=== PATIENT | male | born 1955 | race Caucasian/White ===

== ENCOUNTER → 2020-04-22 11:44 | Outpatient (BNVA) | payer MEDICARE, SELFPAY | PROVIDERS: Visit Provider Nurse Practitioner Family | DX: Z20.828 Contact with and (suspected) exposure to other viral communicable diseases (principal) | CPT/HCPCS: 87635 ==

== ENCOUNTER → 2023-02-22 14:48 | Outpatient (BNVA) | payer MEDICARE, SELFPAY | PROVIDERS: Visit Provider Nurse Practitioner | DX: E55.9 Vitamin D deficiency, unspecified (principal); Z12.5 Encounter for screening for malignant neoplasm of prostate; Z13.6 Encounter for screening for cardiovascular disorders; R41.3 Other amnesia | CPT/HCPCS: 80053; 80061; 81000; 82306; 82607; 84443; 85025; G0103 ==

== ENCOUNTER 2023-03-15 08:37 | Outpatient (CLI) | payer MEDICARE, SELFPAY ==
--- NOTE | 2023-03-15 09:00 | CT_ITS ---
WS: [id number] CT HEAD TECHNIQUE: Noncontrast CT of the head obtained from the skullbase to the vertex. CLINICAL INFORMATION: R41.3 - Other amnesia COMPARISON: None. DLP: 1028.[address] scans at [facility] use at least one of these dose optimization techniques: automated e xposure control; mA and/or kV adjustment per patient size (includes targeted exams where dose is matc hed to clinical indication); or iterative reconstruction. FINDINGS: No evidence of intracranial hemorrhage or mass effect. Ventricular system and basal cisterns are brownlee nt. Mild small vessel changes with mild parenchymal volume loss. No extra-axial fluid collections. No evidence of mass or mass effect. Intracranial vascular calcification. Paranasal sinuses and mastoid air cells are well aerated. .Normal visualized soft tissues. IMPRESSION: 1. No evidence of intracranial hemorrhage or mass effect. 2. Mild small vessel changes. Mild parenchymal volume loss. 3. Cavernous carotid calcification. 4. No acute intracranial findings.
== END 2023-03-15 08:38 | disposition home or self-care (01) ==
LOC: RAD 08:37
PROVIDERS: Visit Provider Nurse Practitioner
DX: R41.3 Other amnesia (principal); I65.29 Occlusion and stenosis of unspecified carotid artery
CPT/HCPCS: 70450

== ENCOUNTER 2023-10-18 02:37 | Observation (INO) | payer MEDICARE, SELFPAY ==
[2023-10-18] VITALS (126 sets, daily range): BP systolic 96–173; BP diastolic 57–104; PULSE 58–116; RESP 14–39; TEMP 36.6–37.2; O2SAT 91–97; BMI 27.8
--- NOTE | 2023-10-18 02:40 | XRR_ITS ---
PROCEDURE INFORMATION: Exam: XR Chest Exam date and time: 10/18/2023 3:05 AM Age: 68 years old Clinical indication: Other: Poss CVA; Patient HX: EMS arrival for possible CVA. ; Additional info: AMS TECHNIQUE: Imaging protocol: Radiologic exam of the chest. Views: 1 view. COMPARISON: CT angio headneck* [id number] 10/18/2023 2:47 AM FINDINGS: Lungs: No consolidation or pulmonary edema. Pleural spaces: No pleural effusion. No pneumothorax. Heart/Mediastinum: Cardiomediastinal silhouette is normal in size. Vasculature: Atherosclerotic calcifications in the thoracic aorta. Bones/joints: No acute fractures. XR/XR chest 1V portable [id number] IMPRESSION: No acute findings.
--- NOTE | 2023-10-18 02:40 | CTR_ITS ---
PROCEDURE INFORMATION: Exam: CTA Head With Contrast, Arteriography Exam date and time: 10/18/2023 2:47 AM Age: 68 years old Clinical indication: Stroke-like symptoms; Altered mental status/memory loss; Additional info: AMS TECHNIQUE: Imaging protocol: Computed tomographic angiography of the head with contrast. Exam focused on the arteries. 3D rendering (Not supervised by radiologist): MIP and/or 3D reconstructed images were created by the technologist. Radiation optimization: All CT scans at this facility use at least one of these dose optimization techniques: automated exposure control; mA and/or kV adjustment per patient size (includes targeted exams where dose is matched to clinical indication); or iterative reconstruction. Contrast material: OMNI 350; Contrast volume: 100 ml; Contrast route: INTRAVENOUS (IV); COMPARISON: CT head thrombolytic [id number] 10/18/2023 2:39 AM RADIATION DOSE METRICS: Total DLP (mGy-cm): 499.36 FINDINGS: ANTERIOR CIRCULATION: Right internal carotid artery: Intracranial segment is patent with no significant stenosis. No aneurysm. Right middle cerebral artery: No occlusion or significant stenosis. No aneurysm. Right anterior cerebral artery: No occlusion or significant stenosis. No aneurysm. Left internal carotid artery: Intracranial segment is patent with no significant stenosis. No aneurysm. Left middle cerebral artery: No occlusion or significant stenosis. No aneurysm. Left anterior cerebral artery: No occlusion or significant stenosis. No aneurysm. POSTERIOR CIRCULATION: Right vertebral artery: No occlusion or significant stenosis. No aneurysm. Left vertebral artery: No occlusion or significant stenosis. No aneurysm. Basilar artery: No occlusion or significant stenosis. No aneurysm. Right posterior cerebral artery: No occlusion or significant stenosis. No aneurysm. Left posterior cerebral artery: No occlusion or significant stenosis. No aneurysm. Brain: There is no evidence of acute intracranial hemorrhage, subacute or chronic ischemic infarct, acute intra-axial or extra-axial fluid collection, mass effect, or midline shift. Intracranial venous sinuses are patent. Cerebral ventricles: No ventriculomegaly. Bones/joints: Unremarkable. No acute fracture. Soft tissues: Unremarkable. PROCEDURE INFORMATION: Exam: CTA Neck With Contrast Exam date and time: 10/18/2023 2:47 AM Age: 68 years old Clinical indication: Stroke-like symptoms; Altered mental status/memory loss; Additional info: AMS TECHNIQUE: Imaging protocol: Computed tomographic angiography of the neck with contrast. Exam focused on the cervical segments of the vasculature. 3D rendering (Not supervised by radiologist): MIP and/or 3D reconstructed images were created by the technologist. Radiation optimization: All CT scans at this facility use at least one of these dose optimization techniques: automated exposure control; mA and/or kV adjustment per patient size (includes targeted exams where dose is matched to clinical indication); or iterative reconstruction. Contrast material: OMNI 350; Contrast volume: 100 ml; Contrast route: INTRAVENOUS (IV); COMPARISON: CT head thrombolytic [id number] 10/18/2023 2:39 AM RADIATION DOSE METRICS: Total DLP (mGy-cm): 499.36 FINDINGS: Right common carotid artery: No stenosis. No dissection or occlusion. Right internal carotid artery: No stenosis of the extracranial segment. No dissection or occlusion. Right external carotid artery: No occlusion or stenosis of the origin. Left common carotid artery: No stenosis. No dissection or occlusion. Left internal carotid artery: No stenosis of the extracranial segment. No dissection or occlusion. Left external carotid artery: No occlusion or stenosis of the origin. Right vertebral artery: No stenosis. No dissection or occlusion. Left vertebral artery: No stenosis. No dissection or occlusion. Soft tissues: Normal. No significant soft tissue swelling. Bones/joints: No acute fracture. CT/CT angio headneck* [id number] IMPRESSION: 1. No acute intracranial findings. 2. No major intracranial artery aneurysm, stenosis or occlusion. IMPRESSION: No major neck artery aneurysm, dissection, obstruction or significant stenosis. REFERENCES: NASCET CRITERIA. The degree of stenosis in the cervical segment of the internal carotid artery is based on NASCET criteria. Normal is no stenosis. Mild is less than 50% stenosis. Moderate is 50-69% stenosis. Severe is 70% to 99% stenosis. Total occlusion is no detectable patent lumen.
--- NOTE | 2023-10-18 02:40 | CTR_ITS ---
PROCEDURE INFORMATION: Exam: CT Head Without Contrast Exam date and time: 10/18/2023 2:39 AM Age: 68 years old Clinical indication: Stroke-like symptoms; Altered mental status/memory loss; Additional info: EMS arrival for poss CVA. Per EMS, laying next to patient in bed and PT sat up to cough and then slumped back and become unresponsive. Limited assessment due to patient being administered ketamine due to becoming combative on route to er. TECHNIQUE: Imaging protocol: Computed tomography of the head without contrast. Radiation optimization: All CT scans at this facility use at least one of these dose optimization techniques: automated exposure control; mA and/or kV adjustment per patient size (includes targeted exams where dose is matched to clinical indication); or iterative reconstruction. Other technique: STROKE PROTOCOL was implemented. COMPARISON: CT head wo con* [id number] 03/15/2023 8:49 AM RADIATION DOSE METRICS: Total DLP (mGy-cm): 998.78 FINDINGS: Brain: No acute intracranial hemorrhage. No mass effect or midline shift. No acute extraaxial fluid collection. Unremarkable white matter. Cerebral ventricles: No ventriculomegaly. Paranasal sinuses: Partially visualized sinuses are unremarkable. No fluid levels. Mastoid air cells: Visualized mastoid air cells are well aerated. Bones: Unremarkable. No acute fracture. Soft tissues: Unremarkable. CT/CT head thrombolytic [id number] IMPRESSION: No acute intracranial findings. ASSESSMENT: ASPECTS ([place] Stroke Program Early CT Score) is 10.
--- NOTE | 2023-10-18 02:40 | ECG_ITS ---
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 Measurements Intervals [place] Rate: 90 P: 208 WA: 334 QRS: 40 QRSD: 106 T: 35 QT: 351 QTc: 431 Interpretive Statements SINUS RHYTHM No previous ECG available for comparison Electronically Signed On 10-18-2023 8:30:57 CDT by Jonnie Vargas M.D. [email or web address] [email or web address] [email or web address] lake [email or web address]/store/NU/[id number] f
[2023-10-18] MEDS: iohexol 350 mg/mL 500 mL Btl (per mL) IV (03:00)
[2023-10-18] MEDS: sodium chloride 0.9% 500 ML 999 ML IV (03:05)
[2023-10-18 03:14] LABS: Basophils # 0.1 10^3/uL (0.0-0.1); Basophils % 0.9 %; Eosinophils % 0.6 %; Hematocrit 46.6 % (37-53); Lymphocytes # 0.8 10^3/uL (0.8-4.8); Lymphocytes % 13.2 %; Mean Corpuscular HGB Conc 33.9 g/dL (30-55); Mean Corpuscular Hemoglobin 32.4 pg (27-33); Mean Corpuscular Volume 95.5 fl (82-101); Mean Platelet Volume 10.6 fL (7.4-10.4); Monocytes # 0.7 10^3/uL (0.2-0.9); Monocytes % 11.2 %; Neutrophils # 4.63 10^3/uL (1.8-7.7); Nucleated Red Blood Cells % 0 %; Platelet Count 186 10^3/cmm (157-399); Red Blood Count 4.88 10^6/uL (3.85-5.65); Red Cell Distribution Width 13.4 % (12.1-15.1); White Blood Count 6.35 10^3/uL (3.29-11.43)
[2023-10-18 03:22] LABS: ABG PCO2 41.4 mmHg (35-45); ABG PH Result 7.35 (7.35-7.45); Arterial Blood Gas Hematocrit 49.5 % (42-52); Blood Gas Allen Test Pos; Blood Gas Operator Identificat ED; Blood Gas Sample Site Radial, right; Blood Gas Sample Type Arterial; HCO3 ABG 22.6 mmol/L (22-26); Oxygen Device ROOM AIR; PO2 ABG 67.6 mmHg (80.0-100.0); PO2 FiO2 Ratio Arterial Blood 0
[2023-10-18 03:26] LABS: INR 0.97 (0.8-1.2)
[2023-10-18 03:27] LABS: Add Urine Microscopic? NO; Charge for UA Resulting for Rev; Partial Thromboplastin Time 25.4 SECONDS (23.9-36.7)
[2023-10-18 03:30] LABS: Bilirubin Urine Neg (Negative); Blood Urine Neg (Negative); Glucose Urine UA Norm (Normal); Ketones Urine Negative (Negative); Leukocyte Esterase Urine Negative (Negative); Nitrate Urine Negative (Negative); Protein Urine Neg (Negative); Specific Gravity, Urine 1.015 (1.005-1.030); Urine Appearance Clear (CLEAR); Urine Color Yellow (Yellow); Urobilinogen Urine Neg (Negative); pH Urine 5 (5-7)
[2023-10-18 03:35] LABS: Alanine Aminotransferase 15 U/L (0-41); Albumin Level 4.3 g/dL (3.5-5.2); Alcohol Level < 10 mg/dL (0-10); Alkaline Phosphatase 70 U/L (40-130); Anion Gap 12.7 (5-19); Aspartate Amino Transferase 24 U/L (0-40); Blood Urea Nitrogen 20 mg/dL (8-23); Calcium 9.1 mg/dL (8.5-10.5); Carbon Dioxide 26 mmol/L (22-29); Chloride 102 mmol/L (98-107); Creatinine Clr Calc Pharmacy 66.8035; Globulin 2.9 g/dL (1.3-4.6); Glomerular Filtration Rate 74.1 mL/min (90-130); Glucose 107 mg/dL (65-115); Magnesium 2.3 mg/dL (1.7-2.3); Osmolality Calculated 285 mOsm/kg (285-295); Phosphorus 2.6 mg/dL (2.5-4.5); Potassium 4.7 mmol/L (3.5-5.1); Sodium 136 mmol/L (136-145); Total Bilirubin 0.4 mg/dL (0.15-1.2); Total Protein 7.2 g/dL (6.6-8.7)
[2023-10-18 03:38] LABS: Ammonia 31 umol/L (16-60)
[2023-10-18 03:39] LABS: Amphetamines Screen Urine Negative (Negative); Barbiturates Screen Urine Negative (Negative); Benzodiazepines Screen Urine Negative (Negative); Cocaine Screen Urine Negative (Negative); Opiate Screen Urine Negative (Negative); PCP Screen Urine Negative (Negative); THC Screen Urine Positive (Negative)
--- NOTE | 2023-10-18 03:47 | ECG_ITS ---
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 Measurements Intervals [place] Rate: 90 P: 208 MA: 334 QRS: 40 QRSD: 106 T: 35 QT: 351 QTc: 431 Interpretive Statements ELECTRONIC ATRIAL PACEMAKER No previous ECG available for comparison Electronically Signed On 10-18-2023 8:27:10 CDT by Jonnie Vargas M.D. [email or web address] hospital at gulfportPosibapaulding county hospital.[employer]/store/[id number] f
--- NOTE | 2023-10-18 04:06 | W.ED.AMS ---
HPI - Altered Mental Status General: Chief Complaint: Altered Mental Status Stated Complaint: ams Time Seen by Provider: 10/18/23 02:40 History of Present Illness: 68-year-old male who went to bed around 8 or 830 last evening. His was awoken by him around 2:30 in the morning with violent shaking. He was not responding to her her appropriately. She called 911. He would not respond appropriately on EMS questioning either. He was breathing. He had a pulse. Evidently he had bitten his tongue, and urinated on himself. In the ambulance, he was very confused, and somewhat combative. He was given ketamine and Ativan for this. He arrives awake but confused. He does not remember the event. Review of Systems General: Reports: ROS unobtainable due to mental status [facility] ED PFSH: Medical History History of smoking Surgical History No history of previous surgery Family History Mother Brain cancer Father Diabetes Denies family history of Hypertension Stroke Social History Smoking and tobacco/nicotine status: former use of tobacco/nicotine Second hand smoke exposure: No Alcohol intake: current Alcohol intake frequency: few times a week Alcohol type: beer Adopted: No Caregiver/support person: No Lives independently: Yes Household members: spouse Housing: House Marital status: Number of children: 3 service: No Current occupational status: employed 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 Do you think of yourself as: Straight/Heterosexual Current gender identity: Male Physical Exam Const: GENERAL APPEARANCE: cooperative, well kempt and ill appearing HENMT: COMMON NORMALS: normocephalic, atraumatic and Normal external nose present HEAD & SCALP: normocephalic and atraumatic FACE & SINUS: normal facial exam and face symmetric NOSE: Normal external nose present MOUTH: tongue abnormal (abrasion) ecchymotic Eye: COMMON NORMALS: Equal, round and reactive pupils present and EOMs intact bilaterally PUPIL: Yes Equal, round and reactive pupils present Neck/C-Spine: GENERAL: Yes trachea midline Chest: CHEST: Yes Symmetrical chest wall rise Resp: COMMON NORMALS: normal respiratory effort, No use of accessory muscles and clear to auscultation bilaterally AUSCULTATION: clear to auscultation bilaterally Cardio: COMMON NORMALS: regular rate and regular rhythm RATE: regular rate RHYTHM: regular rhythm GI: COMMON NORMALS: Normal to inspection, nondistended, normoactive bowel sounds present and Soft to palpation PALPATION: Yes Soft to palpation Extremity: COMMON NORMALS: no pedal edema Neuro: ELVIS COMA SCALE: document GCS findings [place] coma scale eye opening: Spontaneous [place] coma scale verbal response: Confused [place] coma scale motor response: Obey commands Elvis coma scale total score: 14 CRANIAL NERVES: Yes CN normal except as noted COORDINATION/BALANCE: ngudet-ov-xgff test normal and enjp-ue-pgmc test normal SPEECH: abnormal speech (Mild dysarthria) MOTOR EXAM: Pronator motor function not present COORDINATION: evqqiy-dx-jdhv test normal and rnuz-nz-xyew test normal Psych: APPEARANCE: Yes well kempt Course Vital Signs: Vital signs: Vital Signs Temperature 98.1 F 10/18/23 02:38 Pulse Rate 74 10/18/23 03:19 Respiratory Rate 15 10/18/23 03:19 Blood Pressure 155/80 10/18/23 02:38 Pulse Oximetry 94 10/18/23 03:19 Oxygen Delivery Me thod Room Air 10/18/23 03:19 MDM - Altered Mental Status Medical Decision Making Patient is answering questions. He is mildly confused. He says he remembers going to bed. He believes he drank some whiskey at his brother's house earlier in the evening last evening. He has never had a seizure before. Clinically, it sounds like he did have a seizure in bed at home. His is arrived, and believes the same. Vitals have been stable. He is afebrile. CBC is normal. BMP is normal. His pH is 7.35 with a pCO2 of 41 and a pO2 of 68. Drug screen is positive for marijuana. Alcohol is nondetectable. Urinalysis is negative. 0503: Patient is still mildly confused. Not back to baseline. By history, this appears to be a seizure. Without return to baseline, with new onset seizures, will need continued workup. Will admit. Hospitalist agrees. She would like the patient in the ICU for now. Lab Data 10/18/23 03:05 10/18/23 03:05 Radiology Impressions Chest X-Ray 10/18/23 02:40 IMPRESSION: No acute findings. Head CT 10/18/23 02:40 IMPRESSION: No acute intracranial findings. ASSESSMENT: ASPECTS ([place] Stroke Program Early CT Score) is 10. Head/Neck CTA 10/18/23 02:40 IMPRESSION: 1. No acute intracranial findings. 2. No major intracranial artery aneurysm, stenosis or occlusion. IMPRESSION: No major neck artery aneurysm, dissection, obstruction or significant stenosis. REFERENCES: NASCET CRITERIA. The degree of stenosis in the cervical segment of the internal carotid artery is based on NASCET criteria. Normal is no stenosis. Mild is less than 50% stenosis. Moderate is 50-69% stenosis. Severe is 70% to 99% stenosis. Total occlusion is no detectable patent lumen. Laboratory Results WBC 6.35 10^3/uL (3.29-11.43) 10/18/23 03:05 RBC 4.88 10^6/uL (3.85-5.65) 10/18/23 03:05 Hgb 15.80 g/dL (11.27-16.99) 10/18/23 03:05 Hct 46.6 % (37-53) 10/18/23 03:05 MCV 95.5 fl (82-101) 10/18/23 03:05 MCH 32.4 pg (27-33) 10/18/23 03:05 MCHC 33.9 g/dL (30-55) 10/18/23 03:05 RDW 13.4 % (12.1-15.1) 10/18/23 03:05 Plt Count 186 10^3/cmm (157-399) 10/18/23 03:05 MPV 10.6 fL (7.4-10.4) H 10/18/23 03:05 Neut % (Auto) 73.0 % 10/18/23 03:05 Lymph % (Auto) 13.2 % 10/18/23 03:05 [place]ing % (Auto) 11.2 % 10/18/23 03:05 Eos % (Auto) 0.6 % 10/18/23 03:05 Baso % (Auto) 0.9 % 10/18/23 03:05 Neut # (Auto) 4.63 10^3/uL (1.8-7.7) 10/18/23 03:05 Lymph # (Auto) 0.8 10^3/uL (0.8-4.8) 10/18/23 03:05 [place] # (Auto) 0.7 10^3/uL (0.2-0.9) 10/18/23 03:05 Eos # (Auto) 0.0 10^3/uL (0.0-0.8) 10/18/23 03:05 Baso # (Auto) 0.1 10^3/uL (0.0-0.1) 10/18/23 03:05 Nucleated RBC % (auto) 0 % 10/18/23 03:05 Nucleated RBCs # 0.0 /100WBC 10/18/23 03:05 PT 13.10 SECONDS (12.1-14.9) 10/18/23 03:05 INR 0.97 (0.8-1.2) 10/18/23 03:05 APTT 25.4 SECONDS (23.9-36.7) 10/18/23 03:05 Specimen Type Arterial 10/18/23 03:11 Sample Site Radial, right 10/18/23 03:11 ABG pH 7.35 (7.35-7.45) 10/18/23 03:11 ABG pCO2 41.4 mmHg (35-45) 10/18/23 03:11 ABG pO2 67.6 mmHg (80.0-100.0) L 10/18/23 03:11 ABG PO2/FiO2 Ratio 0 10/18/23 03:11 ABG HCO3 22.6 mmol/L (22-26) 10/18/23 03:11 ABG Base Excess -3.0 mmol/L (-2.0-2.0) L 10/18/23 03:11 Pierre Test Pos 10/18/23 03:11 Hematocrit 49.5 % (42-52) 10/18/23 03:11 O2 Delivery Device Room air 10/18/23 03:11 FiO2 21.0 % 10/18/23 03:11 Grain Grader ID Ed 10/18/23 03:11 Sodium 136 mmol/L (136-145) 10/18/23 03:05 Potassium 4.7 mmol/L (3.5-5.1) 10/18/23 03:05 Chloride 102 mmol/L (98-107) 10/18/23 03:05 Carbon Dioxide 26 mmol/L (22-29) 10/18/23 03:05 Anion Gap 12.7 (5-19) 10/18/23 03:05 BUN 20 mg/dL (8-23) 10/18/23 03:05 Creatinine 1.0 mg/dL (0.7-1.2) 10/18/23 03:05 GFR Calculation 74.1 mL/min (90-130) L 10/18/23 03:05 Glucose 107 mg/dL (65-115) 10/18/23 03:05 Calculated Osmolality 285 mOsm/kg (285-295) 10/18/23 03:05 Calcium 9.1 mg/dL (8.5-10.5) 10/18/23 03:05 Phosphorus 2.6 mg/dL (2.5-4.5) 10/18/23 03:05 Magnesium 2.3 mg/dL (1.7-2.3) 10/18/23 03:05 Total Bilirubin 0.4 mg/dL (0.15-1.2) 10/18/23 03:05 AST 24 U/L (0-40) 10/18/23 03:05 ALT 15 U/L (0-41) 10/18/23 03:05 Alkaline Phosphatase 70 U/L (40-130) 10/18/23 03:05 Ammonia 31 umol/L (16-60) 10/18/23 03:05 Troponin T Baseline 11 ng/L (0-15) 10/18/23 03:05 Total Protein 7.2 g/dL (6.6-8.7) 10/18/23 03:05 Albumin 4.3 g/dL (3.5-5.2) 10/18/23 03:05 Globulin 2.9 g/dL (1.3-4.6) 10/18/23 03:05 Urine Color Yellow (Yellow) 10/18/23 03:05 Urine Appearance Clear (CLEAR) 10/18/23 03:05 Urine pH 5 (5-7) 10/18/23 03:05 Ur Specific [place] 1.015 (1.005-1.030) 10/18/23 03:05 Urine Protein Neg (Negative) 10/18/23 03:05 Urine Glucose (UA) Norm (Normal) 10/18/23 03:05 Urine Ketones Negative (Negative) 10/18/23 03:05 Urine Blood Neg (Negative) 10/18/23 03:05 Urine Nitrate Negative (Negative) 10/18/23 03:05 Urine Bilirubin Neg (Negative) 10/18/23 03:05 Urine Urobilinogen Neg mg/dL (Negative) 10/18/23 03:05 Ur Leukocyte Esterase Negative (Negative) 10/18/23 03:05 Urine Opiates Screen Negative ng/mL (Negative) 10/18/23 03:05 Ur Barbiturates Screen Negative ng/mL (Negative) 10/18/23 03:05 Ur Phencyclidine Scrn Negative ng/mL (Negative) 10/18/23 03:05 Ur Amphetamines Screen Negative ng/mL (Negative) 10/18/23 03:05 U Benzodiazepines Scrn Negative ng/mL (Negative) 10/18/23 03:05 Urine Cocaine Screen Negative ng/mL (Negative) 10/18/23 03:05 U Marijuana (THC) Screen Positive ng/mL (Negative) H 10/18/23 03:05 Ethyl Alcohol < 10 mg/dL (0-10) 10/18/23 03:05 All radiology interpretation(s) finalized by discharge Discharge Plan Discharge Patient Disposition: Admitted As Inpatient Clinical Impression: Altered mental status, New onset seizure Condition: Fair Coding Level of Care Code ED Pan Washer for Adrian Chinchilla NIH stroke score NIHSS Level Of Consciousness - 1a: 0 Level Of Consciousness Questions - 1b: One Correct Level Of Consciousness Commands - 1c: Both Correct Best Gaze - 2: Normal Visual Cash - 3: No Visual Loss Facial Palsy - 4: Normal Motor Arm Right - 5: No Drift Motor Arm Left - 5: No Drift Motor Leg Right - 6: No Drift Motor Leg Left - 6: No Drift Limb Ataxia - 7: Absent Sensory - 8: Normal Best Language - 9: No Aphasia Dysarthia - 10: Mild/Moderate Dysarthia Extinction And Inattention - 11: 0 Score Total Score: 2
[2023-10-18 04:21] LABS: Troponin(5th) Baseline 11 ng/L (0-15)
[2023-10-18 05:41] LABS: Troponin 5 2HR 12.18 ng/L (0-15); Troponin 5 2HR Delta 1.18 ABS# (0-10)
--- NOTE | 2023-10-18 05:47 | ECG_ITS ---
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 Measurements Intervals [place] Rate: 72 P: 49 WV: 151 QRS: 20 QRSD: 100 T: 28 QT: 387 QTc: 425 Interpretive Statements SINUS RHYTHM No previous ECG available for comparison Electronically Signed On 10-18-2023 8:31:17 CDT by Jonnie Vargas M.D. [email or web address]/[id number]
--- NOTE | 2023-10-18 06:54 | PC.NURSE ---
Received patient to ICU room [address] via [address] ED[address] Villasenor to bedside. No reports of pain or discomfort. Awake, Alert, and oriented.
--- NOTE | 2023-10-18 07:19 | MR_ITS ---
WS: [id number] MRI HEAD WITH CONTRAST TECHNIQUE: Sagittal T1, T2 axial, T2 axial FLAIR, axial susceptibility weighted imaging, axial diffus ion weighted images, and coronal T2 images were obtained. Pre and post-T1 axial and post T1 coronal i mages. ADC and FSPGR images. CLINICAL INFORMATION: new onset seizures COMPARISON: CT 10/18/2023 FINDINGS: No evidence of restricted diffusion to suggest acute ischemia. Ventricular system and basal cisterns are patent. Mild small vessel changes. Mild parenchymal volume loss. Normal posterior fossa. Normal v ascular flow voids at the skull base. No extra-axial fluid collections. No evidence of mass or mass e ffect. Paranasal sinuses are well aerated. Mastoid air cells are well aerated. Normal posterior nasop harynx. No hemosiderin on the susceptibly weighted images. Normal optic chiasm and pituitary infundibulum. Temporal lobes and hippocampal formations are normal in appearance. No signal abnormalities in the mesial temporal lobes. No abnormal gadolinium enhanceme nt. Normal dural venous sinuses. No other suspicious findings. MR/MR head wo/w con [id number] IMPRESSION: 1. No evidence of restricted diffusion to suggest acute ischemia. 2. Mild small vessel changes with mild parenchymal volume loss. 3. No hemosiderin on susceptibility-weighted images. 4. Temporal lobes and hippocampal formations are normal in appearance. 5. No abnormal gadolinium enhancement.
--- NOTE | 2023-10-18 07:25 | P.HP_ITS ---
Providers/Chief Complaint 2 Admitting Physician: Hailey Villasenor MD Primary Care Provider: Claudette Ocampo, [employer]-C Chief Complaint: ams History of Present Illness Jb Calabrese is a 68 year old male without known medical comorbidities who presents to the hospital today for seizure-like activity noted at home. Patient states that he is usually in good health. He works out a lot. Drinks protein shakes and has been exercising, doing weights etc. He had some back pain yesterday for which he took ibuprofen and went to bed at around 8pm. At around midnight his noted that he was shaking in bed, moving all extremities He was not responding to her appropriately. When EMS arrived they noticed that he had bit his tongue and had suffered urinary incontinence. Upon presentation to the ER he was very confused, initially combative for which she received ketamine and Ativan. Thereafter he remained confused in the emergency room. He is assessed by me this morning after having been transferred to the ICU at around 7 AM. Since arrival here patient is alert awake calm and cooperative. States he does not remember the events of overnight after going to bed. No past history of known seizure disorder. Review of past notes from patient's PCP dating back to January indicate that patient had been suffering from some memory disturbances, increasing forgetfulness for which a CT of the head was ordered but was unable to be completed. He denies using any illicit substances. U tox is positive for marijuana. Has not supplemented his protein drinks with any anabolic steroids. Electrolytes are within range. He had a small alcoholic drink last evening. Ethyl alcohol level was negative. He denies drinking every day. Estimates that he drinks 1-2 drinks every 2 weeks. He is not on any medications at home. Family history positive for brain cancer, unknown which type and patient's mother who at the age of 69. No past history of stroke or TIA. No history of migraines. No history of fever chills Nausea vomiting or photophobia Review of Systems 2 General: Reports: 10 or more systems reviewed and unremarkable except in HPI and below Const: Denies: fever(s), chills or body aches Eyes: Denies: change in vision, blurry vision or photophobia ENMT: Reports: hoarseness; Denies: throat pain, enlarged tonsils, odynophagia or nasal congestion Card: Denies: chest pain, palpitations, irregular heart rhythm, edema, swelling of feet/ankles, lightheadedness, pre-syncope, dyspnea on exertion or orthopnea Resp: Denies: dyspnea, productive cough, non-productive cough, wheezing, stridor, pain on inspiration, change in phlegm color, hemoptysis or chest congestion GI: Denies: abdominal pain, nausea, vomiting, hematemesis, coffee ground emesis, dysphagia, heartburn, diarrhea, constipation, GI cramping, change in stool character, hematochezia or melena : Denies: flank pain, dysuria, urinary frequency, urinary urgency, urinary hesitancy or hematuria Musc: Denies: neck pain, back pain, extremity pain, joint swelling, joint warmth or deformity Neuro: Denies: headache(s), numbness in extremities, weakness in extremities, sensory changes, difficulty walking, frequent falls, dizziness, vertigo, behavioral changes, Slurred speech present or seizure-like activity Psych: Denies: anxiety, depression, suicidal ideation or homicidal ideation Endo: Denies: polyuria, polydipsia, tired all the time, cold intolerance or hot flashes Frank/Lymph: Denies: easy bruising or easy bleeding Medications/Allergies Home Medications Medication Instructions Recorded Confirmed Last Taken Type No Known Home Medications 04/22/20 10/18/23 Unknown History Allergies Allergy/AdvReac Type Severity Reaction Status Date / Time No Known Allergies Allergy Verified 02/22/23 14:26 PFSH Acute 2 PFSH: Medical History History of smoking Surgical History No history of previous surgery Family History Mother Brain cancer Father Diabetes Denies family history of Hypertension Stroke Social History Smoking and tobacco/nicotine status: former use of tobacco/nicotine Second hand smoke exposure: No Alcohol intake: current Alcohol intake frequency: few times a week Alcohol type: beer Adopted: No Caregiver/support person: No Lives independently: Yes Household members: spouse Housing: House Marital status: Number of children: 3 service: No Current occupational status: employed 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 Do you think of yourself as: Straight/Heterosexual Current gender identity: Male Vitals/I&O/Wt Last Vital Signs Temp 98.1 F 10/18/23 02:38 Pulse 67 10/18/23 06:00 Resp 18 10/18/23 06:00 BP 134/84 10/18/23 06:00 Pulse Ox 94 10/18/23 06:00 O2 Del Method Room Air 10/18/23 03:19 10/17/23 10/18/23 10/18/23 22:59 06:59 14:59 Intake Total 500 / 500 Balance 500 / 500 Weight last 48 hrs Weight 74.843 kg Weight 77.111 kg Physical Exam 2 Narrative: General: No acute distress, AO x3 HEENT: PERRLA, pupils bilaterally equal and reactive, pallors not present Chest: Normal vesicular breath sounds, no added sounds, equal good air entry bilaterally CVS: S1-S2 regular, no murmurs, no tachycardia, no gallops, no rubs Abdomen: Soft, nontender, no organomegaly, bowel sounds present Neuro: No focal deficits, no facial deformity, AO x3, power 5/5 in all limbs Data 10/18/23 03:05 10/18/23 03:05 A&P Assessment and plan (1) Altered mental status: Related to postictal state, now resolved (2) New onset seizure: Patient presenting to the hospital with new onset seizure today. Electrolytes are within normal range CT head without acute intracranial findings Head and neck CTA without aneurysm dissection no obstruction or significant stenosis. Alcohol level is negative. Patient denies drinking alcohol every day, this is confirmed by his , less likely to be alcohol withdrawal seizures at this time Check TSH U tox positive for marijuana, negative for amphetamines or benzodiazepines. No signs or symptoms of meningitis Overall does not appear to have any obvious metabolic cause for his new onset seizure. Will order MRI of the brain to look for underlying tumor, sclerosis, demyelinating disorders that may potentially be the alternate explanation for his seizure. Check EEG Patient reports snoring at nighttime. Since the episode happened at sleep wonder if potentially could have sleep apnea or nocturnal hypoxemia. Will order overnight sleep oximetry study. He has received Ativan for seizure. Holding off on adding antiepileptics at this time, closely monitor for development of any repeat episodes, pending MRI Attestations 2 Medical Necessity Statement*: Anticipate less than 2 midnight stay at this time for new onset seizure Diagnoses Altered mental status R41.82 New onset seizure R56.9
[2023-10-18 08:08] LABS: Thyroid Stimulating Hormone 2.05 uIU/mL (0.27-4.20)
[2023-10-18 09:22] LABS: Troponin 5 6HR 11.03 ng/L (0-15); Troponin 5 6HR Delta 0.03 ng/L (0-12)
[2023-10-18] MEDS: pantoprazole DR 40 mg Tablet PO (09:29)
--- NOTE | 2023-10-18 09:42 | ECG_ITS ---
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 Measurements Intervals [place] Rate: 68 P: 41 KS: 153 QRS: 22 QRSD: 104 T: 24 QT: 395 QTc: 422 Interpretive Statements SINUS RHYTHM Compared to ECG 10/18/2023 05:13:10 No significant changes Electronically Signed On 10-18-2023 10:02:16 CDT by Jonnie Vargas M.D. [id number]
--- NOTE | 2023-10-18 14:24 | P.MISC_ITS ---
Miscellaneous Note Note: n ICU 8 after MRI completed. He states he has had a seizure before however it was 1 year ago. He did see his doctor at that time and had a scan done which showed no abnormalities. He saw his nurse practitioner. He says he has not been seen by neurology before. He does not recall having an EEG done. No history of seizures otherwise. He says this would be his second seizure. MRI results are pending at this time Will order Keppra 500 twice daily for now. Recommend neurology consultation. Neurology not available quality control director today. Will observe in hospital next 24 hours. Plan to discharge home with outpatient EEG prescription. Will discuss with neurology over the phone in AM. Patient will benefit from a outpatient sleep study. Overnight sleep oximetry is ordered at this time.
[2023-10-18] MEDS: levETIRAcetam 500 mg Tablet PO ×2 (15:23→17:12)
[2023-10-19] VITALS (15 sets, daily range): BP systolic 97–138; BP diastolic 61–88; PULSE 65–76; RESP 14–21; TEMP 36.9–37.2; O2SAT 90–96
[2023-10-19 04:51] LABS: Basophils # 0.1 10^3/uL (0.0-0.1); Basophils % 0.9 %; Eosinophils # 0.1 10^3/uL (0.0-0.8); Eosinophils % 1.2 %; Hematocrit 46.1 % (37-53); Lymphocytes # 1.4 10^3/uL (0.8-4.8); Lymphocytes % 18.1 %; Mean Corpuscular HGB Conc 33.2 g/dL (30-55); Mean Corpuscular Hemoglobin 31.6 pg (27-33); Mean Corpuscular Volume 95.2 fl (82-101); Mean Platelet Volume 10.4 fL (7.4-10.4); Monocytes % 12.6 %; Neutrophils # 5.02 10^3/uL (1.8-7.7); Neutrophils % 66.4 %; Nucleated Red Blood Cells % 0 %; Platelet Count 190 10^3/cmm (157-399); Red Blood Count 4.84 10^6/uL (3.85-5.65); Red Cell Distribution Width 13.4 % (12.1-15.1); White Blood Count 7.56 10^3/uL (3.29-11.43)
[2023-10-19 05:12] LABS: Alanine Aminotransferase 13 U/L (0-41); Albumin Level 4.1 g/dL (3.5-5.2); Alkaline Phosphatase 69 U/L (40-130); Anion Gap 15.5 (5-19); Aspartate Amino Transferase 18 U/L (0-40); Blood Urea Nitrogen 13 mg/dL (8-23); Calcium 8.7 mg/dL (8.5-10.5); Carbon Dioxide 25 mmol/L (22-29); Chloride 104 mmol/L (98-107); Creatinine Clr Calc Pharmacy 75.6374; Globulin 2.7 g/dL (1.3-4.6); Glomerular Filtration Rate 83.7 mL/min (90-130); Glucose 111 mg/dL (65-115); Osmolality Calculated 291 mOsm/kg (285-295); Potassium 4.5 mmol/L (3.5-5.1); Sodium 140 mmol/L (136-145); Total Bilirubin 0.4 mg/dL (0.15-1.2); Total Protein 6.8 g/dL (6.6-8.7)
[2023-10-19] MEDS: levETIRAcetam 500 mg Tablet PO (08:25)
[2023-10-19] MEDS: pantoprazole DR 40 mg Tablet PO (08:25)
--- NOTE | 2023-10-19 10:45 | P.DS_ITS ---
Discharge Providers Date of Admission: 10/18/23 05:40 Date of Discharge: October 19, 2023 Attending Provider at Admission: Hailey Villasenor MD Attending Provider at Discharge: Minda Davidson MD Primary Care Provider: SHELL Burrows Diagnoses at Discharge Discharge Diagnosis (1) Altered mental status: Status: Resolved (2) New onset seizure: Status: Acute Reason for Visit Reason for Visit: ams Hospital Course Hospital Course rosanna was admitted for seizure-like activity that was noticed at home. He does not have a past known history of seizure disorder however did have a seizure about a year ago. He was admitted to ICU. Remained seizure-free during hospital stay. Initially upon admission did receive ketamine and Ativan. Patient did have tongue biting and urinary incontinence upon presentation. He was started on Keppra 500 twice daily. He was discharged home to follow-up with neurology and to have an outpatient EEG. MRI was also performed during hospital stay which showed no evidence of restricted diffusion to suggest acute ischemia. Mild small vessel changes with mild parenchymal volume loss. No hemosiderin susceptibility weighted images. Temporal lobes and hippocampal formations normal appearance. CTA head and neck did not show any intracranial hemorrhage artery aneurysm stenosis or occlusion. Patient was advised not to drive or operate heavy machinery and follow seizure precautions. He is to follow-up with neurology outpatient. Physical Exam Narrative: General: No acute distress, AO x3 HEENT: PERRLA, pupils bilaterally equal and reactive, pallors not present Chest: Normal vesicular breath sounds, no added sounds, equal good air entry bilaterally CVS: S1-S2 regular, no murmurs, no tachycardia, no gallops, no rubs Abdomen: Soft, nontender, no organomegaly, bowel sounds present Neuro: No focal deficits, no facial deformity, AO x3, power 5/5 in all limbs Discharge Data Studies Completed and Pending Completed Studies During Hospitalization Category Date Time Status CT angio headneck* [id number] Stat Cat Scan 10/18/23 02:[address] head thrombolytic [id number] Stat Cat Scan 10/18/23 02:40 Completed XR chest 1V portable [id number] Stat Exams 10/18/23 02:40 Completed MR head wo/w con [id number] Routine MRI 10/18/23 07:19 Completed Pending at discharge Category Date Time Status EEG electroencephalogram Routine Exams 10/18/23 07:19 Ordered Radiology Impressions Chest X-Ray 10/18/23 02:40 IMPRESSION: No acute findings. Head CT 10/18/23 02:40 IMPRESSION: No acute intracranial findings. ASSESSMENT: ASPECTS ([place] Stroke Program Early CT Score) is 10. Head/Neck CTA 10/18/23 02:40 IMPRESSION: 1. No acute intracranial findings. 2. No major intracranial artery aneurysm, stenosis or occlusion. IMPRESSION: No major neck artery aneurysm, dissection, obstruction or significant stenosis. REFERENCES: NASCET CRITERIA. The degree of stenosis in the cervical segment of the internal carotid artery is based on NASCET criteria. Normal is no stenosis. Mild is less than 50% stenosis. Moderate is 50-69% stenosis. Severe is 70% to 99% stenosis. Total occlusion is no detectable patent lumen. Head MRI 10/18/23 07:19 IMPRESSION: 1. No evidence of restricted diffusion to suggest acute ischemia. 2. Mild small vessel changes with mild parenchymal volume loss. 3. No hemosiderin on susceptibility-weighted images. 4. Temporal lobes and hippocampal formations are normal in appearance. 5. No abnormal gadolinium enhancement. Laboratory Results WBC 7.56 10^3/uL (3.29-11.43) 10/19/23 04:36 RBC 4.84 10^6/uL (3.85-5.65) 10/19/23 04:36 Hgb 15.30 g/dL (11.27-16.99) 10/19/23 04:36 Hct 46.1 % (37-53) 10/19/23 04:36 MCV 95.2 fl (82-101) 10/19/23 04:36 MCH 31.6 pg (27-33) 10/19/23 04:36 MCHC 33.2 g/dL (30-55) 10/19/23 04:36 RDW 13.4 % (12.1-15.1) 10/19/23 04:36 Plt Count 190 10^3/cmm (157-399) 10/19/23 04:36 MPV 10.4 fL (7.4-10.4) 10/19/23 04:36 Neut % (Auto) 66.4 % 10/19/23 04:36 Lymph % (Auto) 18.1 % 10/19/23 04:36 [place] % (Auto) 12.6 % 10/19/23 04:36 Eos % (Auto) 1.2 % 10/19/23 04:36 Baso % (Auto) 0.9 % 10/19/23 04:36 Neut # (Auto) 5.02 10^3/uL (1.8-7.7) 10/19/23 04:36 Lymph # (Auto) 1.4 10^3/uL (0.8-4.8) 10/19/23 04:36 [place] # (Auto) 1.0 10^3/uL (0.2-0.9) H 10/19/23 04:36 Eos # (Auto) 0.1 10^3/uL (0.0-0.8) 10/19/23 04:36 Baso # (Auto) 0.1 10^3/uL (0.0-0.1) 10/19/23 04:36 Nucleated RBC % (auto) 0 % 10/19/23 04:36 Nucleated RBCs # 0.0 /100WBC 10/19/23 04:36 PT 13.10 SECONDS (12.1-14.9) 10/18/23 03:05 INR 0.97 (0.8-1.2) 10/18/23 03:05 APTT 25.4 SECONDS (23.9-36.7) 10/18/23 03:05 Specimen Type Arterial 10/18/23 03:11 Sample Site Radial, right 10/18/23 03:11 ABG pH 7.35 (7.35-7.45) 10/18/23 03:11 ABG pCO2 41.4 mmHg (35-45) 10/18/23 03:11 ABG pO2 67.6 mmHg (80.0-100.0) L 10/18/23 03:11 ABG PO2/FiO2 Ratio 0 10/18/23 03:11 ABG HCO3 22.6 mmol/L (22-26) 10/18/23 03:11 ABG Base Excess -3.0 mmol/L (-2.0-2.0) L 10/18/23 03:11 Pierre Test Pos 10/18/23 03:11 Hematocrit 49.5 % (42-52) 10/18/23 03:11 O2 Delivery Device Room air 10/18/23 03:11 FiO2 21.0 % 10/18/23 03:11 Tree Fruit [employer] Nut [employer]ps Farmer ID Ed 10/18/23 03:11 Sodium 140 mmol/L (136-145) 10/19/23 04:36 Potassium 4.5 mmol/L (3.5-5.1) 10/19/23 04:36 Chloride 104 mmol/L (98-107) 10/19/23 04:36 Carbon Dioxide 25 mmol/L (22-29) 10/19/23 04:36 Anion Gap 15.5 (5-19) 10/19/23 04:36 BUN 13 mg/dL (8-23) 10/19/23 04:36 Creatinine 0.9 mg/dL (0.7-1.2) 10/19/23 04:36 GFR Calculation 83.7 mL/min (90-130) L 10/19/23 04:36 Glucose 111 mg/dL (65-115) 10/19/23 04:36 Calculated Osmolality 291 mOsm/kg (285-295) 10/19/23 04:36 Calcium 8.7 mg/dL (8.5-10.5) 10/19/23 04:36 Phosphorus 2.6 mg/dL (2.5-4.5) 10/18/23 03:05 Magnesium 2.3 mg/dL (1.7-2.3) 10/18/23 03:05 Total Bilirubin 0.4 mg/dL (0.15-1.2) 10/19/23 04:36 AST 18 U/L (0-40) 10/19/23 04:36 ALT 13 U/L (0-41) 10/19/23 04:36 Alkaline Phosphatase 69 U/L (40-130) 10/19/23 04:36 Ammonia 31 umol/L (16-60) 10/18/23 03:05 Troponin T Baseline 11 ng/L (0-15) 10/18/23 03:05 Troponin T 120 Minute 12.18 ng/L (0-15) 10/18/23 05:15 Delta Troponin T 1.18 ABS# (0-10) 10/18/23 05:15 Troponin T Hi Sens 6Hr 11.03 ng/L (0-15) 10/18/23 08:48 Troponin T Hi Sens 6Hr Delta 0.03 ng/L (0-12) 10/18/23 08:48 Total Protein 6.8 g/dL (6.6-8.7) 10/19/23 04:36 Albumin 4.1 g/dL (3.5-5.2) 10/19/23 04:36 Globulin 2.7 g/dL (1.3-4.6) 10/19/23 04:36 TSH 2.05 uIU/mL (0.27-4.20) 10/18/23 05:15 Urine Color Yellow (Yellow) 10/18/23 03:05 Urine Appearance Clear (CLEAR) 10/18/23 03:05 Urine pH 5 (5-7) 10/18/23 03:05 Ur Specific [place] 1.015 (1.005-1.030) 10/18/23 03:05 Urine Protein Neg (Negative) 10/18/23 03:05 Urine Glucose (UA) Norm (Normal) 10/18/23 03:05 Urine Ketones Negative (Negative) 10/18/23 03:05 Urine Blood Neg (Negative) 10/18/23 03:05 Urine Nitrate Negative (Negative) 10/18/23 03:05 Urine Bilirubin Neg (Negative) 10/18/23 03:05 Urine Urobilinogen Neg mg/dL (Negative) 10/18/23 03:05 Ur Leukocyte Esterase Negative (Negative) 10/18/23 03:05 Urine Opiates Screen Negative ng/mL (Negative) 10/18/23 03:05 Ur Barbiturates Screen Negative ng/mL (Negative) 10/18/23 03:05 Ur Phencyclidine Scrn Negative ng/mL (Negative) 10/18/23 03:05 Ur Amphetamines Screen Negative ng/mL (Negative) 10/18/23 03:05 U Benzodiazepines Scrn Negative ng/mL (Negative) 10/18/23 03:05 Urine Cocaine Screen Negative ng/mL (Negative) 10/18/23 03:05 U Marijuana (THC) Screen Positive ng/mL (Negative) H 10/18/23 03:05 Ethyl Alcohol < 10 mg/dL (0-10) 10/18/23 03:05 Vitals Last Vital Signs Temp 98.4 F 10/19/23 00:00 Pulse 68 10/19/23 09:55 Resp 17 10/19/23 04:00 BP 123/69 10/19/23 04:00 Pulse Ox 94 10/19/23 09:55 O2 Del Method Room Air 10/19/23 09:55 Discharge Plan Discharge Patient Disposition: Home Condition: Stable Prescriptions: New levetiracetam 500 mg Tablet 500 mg PO BID Qty: 60 0RF Discharge Orders: Discharge Order (Routine); Ordered 10/19/23 Ordered By: Minda Davidson Other Ambulatory Orders: EEG electroencephalogram (Routine) Timeframe: 1 Day Facility: [facility] - Location: Neurology Ordered By: Minda Davidson Referrals: Margaret Campbell MD [Physician] - 10/28/23 11:15 am Claudette Ocampo FNP-C [Primary Care Provider] - 10/21/23 2:20 pm Patient Instructions: Levetiracetam (By mouth), Epilepsy (GEN), Altered Mental Status (ED), New-Onset Seizure in Adults (ED), New-Onset Seizure in Adults (GEN), Opioid Safety Activity Restrictions/Additional Instructions: Replacing glass with?plastic will prevent cuts during a?seizure?as many injuries are caused by glass doors, cups, showers, etc.Any activity related to water should be considered?a high risk, so people with epilepsy should avoid swimming or taking baths by themselves. Showers are safer than baths and preferred. Swimming alone should be avoided due to the risk of drowning in case of a seizure. Swimming is safer when?there is another person that could intervene if a seizure occurs in the water.Any activity related to cooking can be dangerous and result in mitchell. Precautions include, again, not doing it alone but with another person who could intervene. [place] handles should be facing the back of the stove.Always keep at least one door unlocked in the house when you are alone.Only use motorized power tools that have safety switches. Machines with safety switches will stop on their own if you have a seizure and let go of the switch.Finally, be aware of your surroundings and make sure family and?friends are aware of your seizures and?know what to do to help if you have a seizure. Do not drive until seen by neurology. If you have another seizure, please return to ER immediately. Discharge Attestations Time Spent in Discharge Care*: greater than 30 min Quality Metrics Clinical Quality Measures [ No reported AMI, CVA or VTE this stay] Coding Level of Care Code Acute Code for Chg Fwd Diagnoses Altered mental status R41.82 New onset seizure R56.9
== END 2023-10-19 12:12 | disposition home or self-care (01) ==
LOC: ER 04:54 → ICU 05:53
PROVIDERS: Admitting Provider Student in an Organized Health Care Education/Training Program; Emergency Provider Emergency Medicine; PCP Nurse Practitioner; Visit Provider Internal Medicine
DX: R41.82 Altered mental status, unspecified (principal); R56.9 Unspecified convulsions; Z80.8 Family history of malignant neoplasm of other organs or systems; Z87.891 Personal history of nicotine dependence
CPT/HCPCS: 36415; 36600; 70450; 70496; 70498; 70553; 71045; 80053; 80306; 80307; 81003; 82140; 82803; 83735; 84100; 84443; 84484; 85025; 85610; 85730; 93005; 99285; G0378; J7040; Q9967

== ENCOUNTER → 2023-10-28 10:40 | Outpatient (BNVA) | payer MEDICARE, SELFPAY | PROVIDERS: PCP Nurse Practitioner; Visit Provider Specialist | DX: R56.9 Unspecified convulsions (principal); F41.8 Other specified anxiety disorders; G31.84 Mild cognitive impairment of uncertain or unknown etiology | CPT/HCPCS: 99204; 99205 ==

== ENCOUNTER 2024-04-04 21:38 | Emergency (ER) | payer MEDICARE, MEDICAID, SELFPAY ==
[2024-04-04 21:39] VITALS: BP 168/105; PULSE 82; RESP 18; TEMP 36.6; O2SAT 91; BMI 25.8
[2024-04-04 21:45] VITALS: BP 162/96; PULSE 80; RESP 18; O2SAT 94
[2024-04-04] MEDS: levETIRAcetam 1,500 MG/100 ML PREMIX 400 MG IV (21:52)
[2024-04-04 21:56] LABS: Basophils # 0.1 10^3/uL (0.0-0.1); Basophils % 0.8 %; Eosinophils # 0.1 10^3/uL (0.0-0.8); Eosinophils % 1.5 %; Hematocrit 45.3 % (37-53); Lymphocytes # 2.4 10^3/uL (0.8-4.8); Lymphocytes % 36.6 %; Mean Corpuscular HGB Conc 34.4 g/dL (30-55); Mean Corpuscular Hemoglobin 32.2 pg (27-33); Mean Corpuscular Volume 93.4 fl (82-101); Monocytes # 0.8 10^3/uL (0.2-0.9); Monocytes % 12.6 %; Neutrophils # 3.17 10^3/uL (1.8-7.7); Neutrophils % 47.9 %; Nucleated Red Blood Cells % 0 %; Platelet Count 192 10^3/cmm (157-399); Red Blood Count 4.85 10^6/uL (3.85-5.65); Red Cell Distribution Width 12.8 % (12.1-15.1); White Blood Count 6.61 10^3/uL (3.29-11.43)
--- NOTE | 2024-04-04 22:04 | W.ED.SEIZURE ---
HPI - Seizure General: Chief Complaint: Seizure Stated Complaint: SEIZURE Time Seen by Provider: 04/04/24 21:41 History of Present Illness: HPI Narrative: 68-year-old man with history of seizure disorder who [place] with Dr. Campbell who is supposed to be taking Keppra who presents emergency room by ambulance after having around a 3 to 5-minute seizure and then has been postictal almost until he arrives here. He seems to be back to normal. He tells me he had quit taking his Keppra because it made him feel strange and hallucinate. He he had an appoint with Dr. Campbell this but he says he canceled it because he did not take the medication anymore. I discussed with him that perhaps he can go see Dr. Campbell and discussed the side effects of this medication and maybe she can write him something else since he continues to have seizures. He did bite his tongue. He says he did not hit his head and has no head pain. No pain elsewhere. Bleeding is stopped on the tongue laceration is small. No loss of bowel or bladder. Related Data Previous Rx's Medication Instructions Recorded levetiracetam 750 mg 1,500 mg (2 x 750 mg) PO DAILY 03/20/24 tablet,extended release 24 hr #180 tabs (Keppra XR) Allergies Allergy/AdvReac Type Severity Reaction Status Date / Time No Known Allergies Allergy Verified 04/04/24 21:46 Review of Systems Narrative: Constitutional symptoms: Negative except as documented in HPI. Skin symptoms: Negative except as documented in HPI. Eye symptoms: Negative except as documented in HPI. ENMT symptoms: Negative except as documented in HPI. Respiratory symptoms: Negative except as documented in HPI. Cardiovascular symptoms: Negative except as documented in HPI. Gastrointestinal symptoms: Negative except as documented in HPI. Genitourinary symptoms: Negative except as documented in HPI. Musculoskeletal symptoms: Negative except as documented in HPI. Neurologic symptoms: Negative except as documented in HPI. Psychiatric symptoms: Negative except as documented in HPI. Endocrine symptoms: Negative except as documented in HPI. PFS ED PFSH: Medical History History of smoking Surgical History No history of previous surgery Family History Mother Brain cancer Father Diabetes Denies family history of Hypertension Stroke Social History Smoking and tobacco/nicotine status: former use of tobacco/nicotine Second hand smoke exposure: No Alcohol intake: current Alcohol intake frequency: few times a week Alcohol type: beer Substance/Drug Use: current Substance/Drug use frequency: Special occassions/opportunity only Adopted: No Caregiver/support person: No Lives independently: Yes Household members: spouse Housing: House Marital status: Number of children: 3 service: No Current occupational status: employed 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 Skin: Warm, dry. Head: Normocephalic, atraumatic. Neck: Supple, trachea midline. Eye: Extraocular movements are intact. Ears, nose, mouth and throat: mucosa moist. Cardiovascular: Regular, Normal peripheral perfusion. Respiratory: Lungs are clear to auscultation, respirations are non-labored, breath sounds are equal, Symmetrical chest wall expansion. Gastrointestinal: Soft, Nontender, Non distended Musculoskeletal: Normal ROM, no deformity. Neurological: Alert and oriented, No focal neurological deficit observed. Psychiatric: Cooperative, appropriate mood & affect. Course Vital Signs: Vital signs: Vital Signs Temperature 97.9 F 04/04/24 21:39 Pulse Rate 66 04/04/24 22:15 Respiratory Rate 20 H 04/04/24 22:15 Blood Pressure 126/75 04/04/24 22:15 Pulse Oximetry 91 04/04/24 22:15 Oxygen Delivery Me thod Room Air 04/04/24 22:15 MDM - Seizure MDM Narrative Medical decision making narrative: Medical decision making: Differential diagnosis for this patient with a complaint of seizure like activity would include but not be limited to, and based on the above HPI, review of systems and physical exam: seizure, DT's, alcohol withdrawal, brain malignancy, pseudo-seizure, syncope. Orders placed to evaluate differential diagnosis based on the above differential, HPI and physical exam Lab Review: Laboratory results were reviewed and interpreted by myself the emergency room physician Lab work is fairly unremarkable other than slightly elevated lactate that you would expect after seizure. No leukocytosis. No anemia. No renal failure. I reviewed the patient's medical record. Reexamination: Patient remained stable. No increased work of breathing. No altered mental status. No focal motor deficits. No further seizures Assessment and plan: Seizure Medical noncompliance - Discharged home - Discussed plan with patient. Answered any questions. - Evaluation and treatment of this problem were appropriate in the emergency setting. Lab Data 04/04/24 21:49 04/04/24 21:49 Labs: Laboratory Results WBC 6.61 10^3/uL (3.29-11.43) 04/04/24 21:49 RBC 4.85 10^6/uL (3.85-5.65) 04/04/24 21:49 Hgb 15.60 g/dL (11.27-16.99) 04/04/24 21:49 Hct 45.3 % (37-53) 04/04/24 21:49 MCV 93.4 fl (82-101) 04/04/24 21:49 MCH 32.2 pg (27-33) 04/04/24 21:49 MCHC 34.4 g/dL (30-55) 04/04/24 21:49 RDW 12.8 % (12.1-15.1) 04/04/24 21:49 Plt Count 192 10^3/cmm (157-399) 04/04/24 21:49 MPV 10.0 fL (7.4-10.4) 04/04/24 21:49 Neut % (Auto) 47.9 % 04/04/24 21:49 Lymph % (Auto) 36.6 % 04/04/24 21:49 [place] % (Auto) 12.6 % 04/04/24 21:49 Eos % (Auto) 1.5 % 04/04/24 21:49 Baso % (Auto) 0.8 % 04/04/24 21:49 Neut # (Auto) 3.17 10^3/uL (1.8-7.7) 04/04/24 21:49 Lymph # (Auto) 2.4 10^3/uL (0.8-4.8) 04/04/24 21:49 [place] # (Auto) 0.8 10^3/uL (0.2-0.9) 04/04/24 21:49 Eos # (Auto) 0.1 10^3/uL (0.0-0.8) 04/04/24 21:49 Baso # (Auto) 0.1 10^3/uL (0.0-0.1) 04/04/24 21:49 Nucleated RBC % (auto) 0 % 04/04/24 21:49 Nucleated RBCs # 0.0 /100WBC 04/04/24 21:49 Sodium 140 mmol/L (136-145) 04/04/24 21:49 Potassium 3.8 mmol/L (3.5-5.1) 04/04/24 21:49 Chloride 103 mmol/L (98-107) 04/04/24 21:49 Carbon Dioxide 24 mmol/L (22-29) 04/04/24 21:49 Anion Gap 16.8 (5-19) 04/04/24 21:49 BUN 13 mg/dL (8-23) 04/04/24 21:49 Creatinine 0.9 mg/dL (0.7-1.2) 04/04/24 21:49 GFR Calculation 83.7 mL/min (90-130) L 04/04/24 21:49 Glucose 117 mg/dL (65-115) H 04/04/24 21:49 Calculated Osmolality 291 mOsm/kg (285-295) 04/04/24 21:49 Lactic Acid 2.8 mmol/L (0.5-2.2) H 04/04/24 21:49 Calcium 9.6 mg/dL (8.5-10.5) 04/04/24 21:49 Total Bilirubin 0.3 mg/dL (0.15-1.2) 04/04/24 21:49 AST 21 U/L (0-40) 04/04/24 21:49 ALT 17 U/L (0-41) 04/04/24 21:49 Alkaline Phosphatase 75 U/L (40-130) 04/04/24 21:49 Total Protein 7.1 g/dL (6.6-8.7) 04/04/24 21:49 Albumin 4.5 g/dL (3.5-5.2) 04/04/24 21:49 Globulin 2.6 g/dL (1.3-4.6) 04/04/24 21:49 No radiology studies performed this visit Discharge Plan Discharge Patient Disposition: Home Clinical Impression: Epileptic seizure Condition: Stable Prescriptions: No Action levetiracetam [Keppra XR] 750 mg tablet extended release 24 hr 1,500 mg PO DAILY Qty: 180 3RF Discharge Orders: Discharge ED (Routine); Ordered 04/04/24 Ordered By: Edyta Bhandari Referrals: Margaret Campbell MD [Physician] - 4-7 days (Please reschedule an appointment with Dr. Campbell if she cannot reinstate the appointment you canceled) Claudette Ocampo, DIRECTOR OF PRODUCT DEVELOPMENT-C [Primary Care Provider] - Patient Instructions: Epilepsy (ED), Opioid Safety, Pain Management Activity Restrictions/Additional Instructions: Thank you for choosing [facility] for your healthcare needs today. Please realize this is an emergency room and that we are providing you with a medical screening exam and this may not be complete and all inclusive of all the testing and or work up that you may need to determine your ailment or severity of your illness. You have been screened and evaluated and felt safe for discharge. Health conditions do change or evolve sometimes and as such it is important that you follow up with your Primary Doctor to be re checked, 3-5 days is a general good time frame for follow up. You are always welcome to return to the ED for re assessment if your symptoms are worsening or you have new concerns Coding Level of Care Code ED Fingernail Technician for Adrian Chinchilla
[2024-04-04 22:15] VITALS: BP 126/75; PULSE 66; RESP 20; O2SAT 91
[2024-04-04 22:16] LABS: Lactic Sepsis W/Reflex 2.8 mmol/L (0.5-2.2)
[2024-04-04 22:19] LABS: Alanine Aminotransferase 17 U/L (0-41); Albumin Level 4.5 g/dL (3.5-5.2); Alkaline Phosphatase 75 U/L (40-130); Anion Gap 16.8 (5-19); Aspartate Amino Transferase 21 U/L (0-40); Blood Urea Nitrogen 13 mg/dL (8-23); Calcium 9.6 mg/dL (8.5-10.5); Carbon Dioxide 24 mmol/L (22-29); Chloride 103 mmol/L (98-107); Creatinine Clr Calc Pharmacy 73.7502; Globulin 2.6 g/dL (1.3-4.6); Glomerular Filtration Rate 83.7 mL/min (90-130); Glucose 117 mg/dL (65-115); Osmolality Calculated 291 mOsm/kg (285-295); Potassium 3.8 mmol/L (3.5-5.1); Sodium 140 mmol/L (136-145); Total Bilirubin 0.3 mg/dL (0.15-1.2); Total Protein 7.1 g/dL (6.6-8.7)
[2024-04-04 23:14] VITALS: BP 136/80; PULSE 71; O2SAT 94
[2024-04-04 23:42] LABS: Reflex Lactate Order REFLEX LACTIC ORDERD
== END 2024-04-04 23:16 | disposition home or self-care (01) ==
PROVIDERS: Emergency Provider Emergency Medicine; PCP Nurse Practitioner
DX: G40.909 Epilepsy, unspecified, not intractable, without status epilepticus (principal)
CPT/HCPCS: 36415; 80053; 83605; 85025; 96365; 99284; J1953

== ENCOUNTER → 2024-04-05 13:51 | Outpatient (BNVA) | payer MEDICARE, MEDICAID, SELFPAY | PROVIDERS: PCP Nurse Practitioner; Referring Provider Nurse Practitioner; Visit Provider Specialist | DX: G40.909 Epilepsy, unspecified, not intractable, without status epilepticus (principal); F41.8 Other specified anxiety disorders; G31.84 Mild cognitive impairment of uncertain or unknown etiology | CPT/HCPCS: 99215 ==

== ENCOUNTER 2024-05-22 00:08 | Emergency (ER) | payer MEDICARE, MEDICAID, SELFPAY ==
[2024-05-22] VITALS (11 sets, daily range): BP systolic 133–149; BP diastolic 77–89; PULSE 54–75; RESP 13–21; TEMP 36.4; O2SAT 94–99; BMI 25.8
--- NOTE | 2024-05-22 00:36 | XRR_ITS ---
PROCEDURE INFORMATION: Exam: XR Chest Exam date and time: 05/22/2024 12:51 AM Age: 69 years old Clinical indication: Other: Poss infection; Additional info: Seizure, rule out infectious cause TECHNIQUE: Imaging protocol: Radiologic exam of the chest. Views: 1 view. COMPARISON: CR XR chest 1V portable [id number] 10/18/2023 3:05 AM FINDINGS: Lungs: Unremarkable. No consolidation. Pleural spaces: Unremarkable. No pleural effusion. No pneumothorax. Heart/Mediastinum: Unremarkable. No cardiomegaly. Bones/joints: Unremarkable. XR/XR chest 1V portable [id number] IMPRESSION: No acute findings.
[2024-05-22] MEDS: sodium chloride 0.9% 1,000 ML 999 ML IV (00:53)
[2024-05-22] MEDS: ondansetron 2 mg/ML SDV 2 mL 4 MG IVP (00:53)
[2024-05-22 01:08] LABS: Basophils # 0.1 10^3/uL (0.0-0.1); Basophils % 1.1 %; Eosinophils # 0.2 10^3/uL (0.0-0.8); Eosinophils % 3.1 %; Hematocrit 45.9 % (37-53); Lymphocytes # 1.9 10^3/uL (0.8-4.8); Lymphocytes % 30.1 %; Mean Corpuscular HGB Conc 33.3 g/dL (30-55); Mean Corpuscular Hemoglobin 31.9 pg (27-33); Mean Corpuscular Volume 95.6 fl (82-101); Mean Platelet Volume 10.6 fL (7.4-10.4); Monocytes # 0.7 10^3/uL (0.2-0.9); Monocytes % 11.3 %; Neutrophils # 3.42 10^3/uL (1.8-7.7); Neutrophils % 53.2 %; Nucleated Red Blood Cells % 0 %; Platelet Count 175 10^3/cmm (157-399); White Blood Count 6.44 10^3/uL (3.29-11.43)
[2024-05-22] MEDS: levETIRAcetam 2,000 MG/200 ML PREMIX 400 MG IV (01:09)
[2024-05-22 01:11] LABS: Alanine Aminotransferase 15 U/L (0-41); Albumin Level 4.1 g/dL (3.5-5.2); Alkaline Phosphatase 74 U/L (40-130); Aspartate Amino Transferase 15 U/L (0-40); Blood Urea Nitrogen 13 mg/dL (8-23); Calcium 9.1 mg/dL (8.5-10.5); Carbon Dioxide 22 mmol/L (22-29); Chloride 105 mmol/L (98-107); Creatinine Clr Calc Pharmacy 81.8003; Globulin 2.5 g/dL (1.3-4.6); Glomerular Filtration Rate 95.6 mL/min (90-130); Glucose 107 mg/dL (65-115); Lactic Sepsis W/Reflex 2.8 mmol/L (0.5-2.2); Magnesium 2.2 mg/dL (1.7-2.3); Osmolality Calculated 291 mOsm/kg (285-295); Sodium 140 mmol/L (136-145); Total Bilirubin 0.2 mg/dL (0.15-1.2); Total Protein 6.6 g/dL (6.6-8.7)
[2024-05-22 02:36] LABS: Reflex Lactate Order REFLEX LACTIC ORDERD
[2024-05-22 02:39] LABS: Glucose Point of Care 98 mg/dL (70-110)
[2024-05-22 03:45] LABS: Lactic Acid level (Lactate) 1.8 mmol/L (0.5-2.2)
--- NOTE | 2024-05-22 03:53 | ED_ITS ---
HPI - Seizure 2 General: Chief Complaint: Seizure Stated Complaint: SEIZURE Time Seen by Provider: 05/22/24 00:15 Source: patient, family and EMS Mode of arrival: EMS Limitations: no limitations History of Present Illness: HPI Narrative: Patient slightly postictal and confused, comes in as well as EMS was here to provide history. Patient takes Keppra 750 twice daily. Only takes 1 pill twice a day. He was on his other medication that he was titrating up but then they have run out of it. He only has seizures at night when he sleeping, never had a sleep study for sleep apnea. Seizure History: Yes Place: Home Related Data Previous Rx's Medication Instructions Recorded lamotrigine 100 mg tablet 100 mg PO Q12H 14 days #54 tabs 04/05/24 (Lamictal) lamotrigine 200 mg tablet 200 mg PO BID 90 days #180 tabs 04/05/24 (Lamictal) levetiracetam 750 mg 1,500 mg (2 x 750 mg) PO DAILY #90 04/05/24 tablet,extended release 24 hr tabs (Keppra XR) Allergies Allergy/AdvReac Type Severity Reaction Status Date / Time No Known Allergies Allergy Verified 04/05/24 14:00 [facility] ED 2 [facility]: Medical History History of smoking Surgical History No history of previous surgery Family History Mother Brain cancer Father Diabetes Denies family history of Hypertension Stroke Social History Smoking and tobacco/nicotine status: former use of tobacco/nicotine Second hand smoke exposure: No Alcohol intake: current Alcohol intake frequency: few times a week Alcohol type: beer Substance/Drug Use: current Substance/Drug use frequency: Special occassions/opportunity only Adopted: No Caregiver/support person: No Lives independently: Yes Household members: spouse Housing: House Marital status: Number of children: 3 service: No Current occupational status: employed 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 Vital Signs: Vital signs: Vital Signs Temperature 97.6 F 05/22/24 00:09 Pulse Rate 59 L 05/22/24 03:30 Respiratory Rate 20 H 05/22/24 03:30 Blood Pressure 140/82 05/22/24 03:30 Pulse Oximetry 97 05/22/24 03:30 Oxygen Delivery Me thod Room Air 05/22/24 02:00 MDM - Seizure MDM Narrative Medical decision making narrative: Patient with seizure history the past few years now followed Dr. Campbell. His seizures only occur when he is sleeping. heard him seizing from the other room came in he had bit his tongue but was on the pillow and he was actively seizing he did stop, unsure the duration. Patient arrives here still a little bit postictal as far as confusion but alert and oriented. No memory except for going to bed and then waking up in the ambulance. Lactic acid mildly elevated consistent with a seizure. Patient has not had a sleep study. Patient did have some bradycardia while here while sleeping so I suspect he may have a background of sleep apnea which could be worsening his seizures. Lab Data 05/22/24 00:21 05/22/24 00:21 Labs: Radiology Impressions Chest X-Ray 05/22/24 00:36 IMPRESSION: No acute findings. Laboratory Results WBC 6.44 10^3/uL (3.29-11.43) 05/22/24 00:21 RBC 4.80 10^6/uL (3.85-5.65) 05/22/24 00:21 Hgb 15.30 g/dL (11.27-16.99) 05/22/24 00:21 Hct 45.9 % (37-53) 05/22/24 00:21 MCV 95.6 fl (82-101) 05/22/24 00:21 MCH 31.9 pg (27-33) 05/22/24 00: MCHC 33.3 g/dL (30-55) 05/22/24 00:21 RDW 13.0 % (12.1-15.1) 05/22/24 00:21 Plt Count 175 10^3/cmm (157-399) 05/22/24 00:21 MPV 10.6 fL (7.4-10.4) H 05/22/24 00:21 Neut % (Auto) 53.2 % 05/22/24 00:21 Lymph % (Auto) 30.1 % 05/22/24 00:21 [place] % (Auto) 11.3 % 05/22/24 00:21 Eos % (Auto) 3.1 % 05/22/24 00:21 Baso % (Auto) 1.1 % 05/22/24 00:21 Neut # (Auto) 3.42 10^3/uL (1.8-7.7) 05/22/24 00:21 Lymph # (Auto) 1.9 10^3/uL (0.8-4.8) 05/22/24 00:21 [place] # (Auto) 0.7 10^3/uL (0.2-0.9) 05/22/24 00:21 Eos # (Auto) 0.2 10^3/uL (0.0-0.8) 05/22/24 00:21 Baso # (Auto) 0.1 10^3/uL (0.0-0.1) 05/22/24 00:21 Nucleated RBC % (auto) 0 % 05/22/24 00: Nucleated RBCs # 0.0 /100WBC 05/22/24 00:21 Sodium 140 mmol/L (136-145) 05/22/24 00:21 Potassium 4.0 mmol/L (3.5-5.1) 05/22/24 00:21 Chloride 105 mmol/L (98-107) 05/22/24 00:21 Carbon Dioxide 22 mmol/L (22-29) 05/22/24 00:21 Anion Gap 17.0 (5-19) 05/22/24 00:21 BUN 13 mg/dL (8-23) 05/22/24 00:21 Creatinine 0.8 mg/dL (0.7-1.2) 05/22/24 00:21 GFR Calculation 95.6 mL/min (90-130) 05/22/24 00:21 Glucose 107 mg/dL (65-115) 05/22/24 00:21 POC Glucose 98 mg/dL (70-110) 05/22/24 02:34 Calculated Osmolality 291 mOsm/kg (285-295) 05/22/24 00:21 Lactic Acid 2.8 mmol/L (0.5-2.2) H 05/22/24 00:21 Lactic Acid (Sepsis) 1.8 mmol/L (0.5-2.2) 05/22/24 03:20 Calcium 9.1 mg/dL (8.5-10.5) 05/22/24 00:21 Magnesium 2.2 mg/dL (1.7-2.3) 05/22/24 00:21 Total Bilirubin 0.2 mg/dL (0.15-1.2) 05/22/24 00:21 AST 15 U/L (0-40) 05/22/24 00:21 ALT 15 U/L (0-41) 05/22/24 00:21 Alkaline Phosphatase 74 U/L (40-130) 05/22/24 00:21 Total Protein 6.6 g/dL (6.6-8.7) 05/22/24 00:21 Albumin 4.1 g/dL (3.5-5.2) 05/22/24 00:21 Globulin 2.5 g/dL (1.3-4.6) 05/22/24 00:21 No radiology studies performed this visit Discharge Plan Discharge Patient Disposition: Home Clinical Impression: Epileptic seizure Condition: Stable Prescriptions: No Action lamotrigine [Lamictal] 100 mg tablet 100 mg PO Q12H 14 Days Qty: 54 0RF Rx Instructions: take 1/2 twice a day for 2 weeks then 1 twice a day for 2 weeks then 1 1/2 tablets twice a day for a week lamotrigine [Lamictal] 200 mg tablet 200 mg PO BID 90 Days Qty: 180 3RF levetiracetam [Keppra XR] 750 mg tablet extended release 24 hr 1,500 mg PO DAILY Qty: 90 0RF Rx Instructions: 2 daily for a month than 1 a day for a month then stop Discharge Orders: Discharge ED (Routine); Ordered 05/22/24 Ordered By: Paul Becerra Referrals: Margaret Campbell MD [Physician] - Claudette Ocampo UNIT RECEPTIONIST-C [Primary Care Provider] - Paul Becerra MD [Emergency Provider] - Discharge Diet: Usual diet Discharge Activity: Resume usual activity Patient Instructions: Epilepsy (ED) Coding Level of Care Code ED Hose Suspender Cutter for Chg Renée
== END 2024-05-22 04:08 | disposition home or self-care (01) ==
PROVIDERS: Emergency Provider Emergency Medicine; PCP Nurse Practitioner
DX: G40.909 Epilepsy, unspecified, not intractable, without status epilepticus (principal); Z87.891 Personal history of nicotine dependence
CPT/HCPCS: 36416; 71045; 80053; 80175; 80177; 82962; 83605; 83735; 85025; 96365; 96366; 96375; 99284; J1953; J2405; J7030

== ENCOUNTER → 2024-05-25 14:35 | Outpatient (BNVA) | payer MEDICARE, MEDICAID, SELFPAY | PROVIDERS: PCP Nurse Practitioner; Referring Provider Nurse Practitioner; Visit Provider Specialist | DX: G40.909 Epilepsy, unspecified, not intractable, without status epilepticus (principal); F41.8 Other specified anxiety disorders; G31.84 Mild cognitive impairment of uncertain or unknown etiology | CPT/HCPCS: 99214 ==

== ENCOUNTER → 2024-07-24 14:47 | Outpatient (BNVA) | payer MEDICARE, MEDICAID, SELFPAY | PROVIDERS: PCP Nurse Practitioner; Visit Provider Specialist | DX: G40.909 Epilepsy, unspecified, not intractable, without status epilepticus (principal) | CPT/HCPCS: 99214 ==

== ENCOUNTER → 2024-10-17 12:15 | Outpatient (BNVA) | payer MEDICARE, MEDICAID, SELFPAY | PROVIDERS: PCP Nurse Practitioner; Visit Provider Specialist | DX: G40.909 Epilepsy, unspecified, not intractable, without status epilepticus (principal); G31.84 Mild cognitive impairment of uncertain or unknown etiology | CPT/HCPCS: 99214 ==